=== PATIENT | male | born 1965 | race African-American/Black ===

== ENCOUNTER 2019-01-18 21:04 | Inpatient (IN) | payer MEDICARE ==
[~2019-01-18] VITALS: Ht 170.2 cm; Wt 83.1 kg
[~2019-01-18 21:04] MED LIST: AMLO10 PO; Colace100 MG PO; LISI20 PO; Lopressor 25 mg25 MG PO
[2019-01-18 21:52] LABS: BASOPHILS ABSOLUTE AUTO 0.02 K/mm3 (0.00-0.23); BASOPHILS PERCENT AUTO 0 % (0-2); EOSINOPHILS PERCENT AUTO 0 % (0-6); Hematocrit 39.5 % (37.0-53.0); Hemoglobin 13.8 g/dL (13.5-17.5); IMMATURE GRAN ABSOLUTE AUTO 0.06 K/mm3 (0.00-0.10); IMMATURE GRAN PERCENT AUTO 0 % (0-1); LYMPHOCYTES ABSOLUTE AUTO 0.28 K/mm3 (0.84-5.20); LYMPHOCYTES PERCENT AUTO 2 % (21-46); MONOCYTES ABSOLUTE AUTO 0.56 K/mm3 (0.16-1.47); MONOCYTES PERCENT AUTO 4 % (4-13); Mean Corpuscular HGB 29.9 pg (26.0-34.0); Mean Corpuscular HGB Conc 34.9 g/dL (31.5-36.5); Mean Corpuscular Volume 86 fL (80-100); Mean Platelet Volume 8.7 fL (9.1-12.4); NEUTROPHILS ABSOLUTE AUTO 13.74 K/mm3 (1.96-9.15); NEUTROPHILS PERCENT AUTO 94 % (41-73); Platelet Count 298 K/mm3 (150-400); RDW Coefficient Variation 14.2 % (11.7-14.2); RDW Standard Deviation 43.7 fL (35.1-46.3); Red Blood Cell Count 4.61 M/mm3 (4.30-5.90); White Blood Cell Count 14.66 K/mm3 (4.00-11.30)
[2019-01-18 22:06] LABS: Albumin, Blood 3.5 g/dL (3.4-5.0); Albumin/Globulin Ratio 0.9 (0.8-1.8); Bilirubin, Total 0.5 mg/dL (0.1-1.0); Bun/Creatinine Ratio 23.3 (12.0-20.0); Calcium, Blood 7.3 mg/dL (8.5-10.1); Creatinine, Blood 2.19 mg/dL (0.60-1.20); Globulin, Blood 3.7 g/dL (2.2-4.0); Potassium, Blood 3.4 mmol/L (3.5-5.5); Total Protein, Blood 7.2 g/dL (6.4-8.2)
[2019-01-18 22:22] LABS: PCO2 Arterial 13.3 mmHg (35-45); PO2 Arterial 103 mmHg (80-100); pH Blood Arterial 7.43 (7.35-7.45)
[2019-01-18 22:33] LABS: Source, Urine Catheter
[2019-01-18 22:36] LABS: Bilirubin, Urine Neg (Neg); Blood, Urine 5+ (Neg); Glucose Qualitative, Urine Neg (Neg); Ketones, Urine 3+ (Neg); Leukocyte Esterase, Urine Neg (Neg); Nitrite, Urine Neg (Neg); Protein, Urine 3+ (Neg); Urobilinogen, Urine NORM (Normal)
[2019-01-18 22:39] LABS: Appearance, Urine Clear (Clear); Color, Urine Yellow (P-Yellow)
[2019-01-18 22:42] LABS: Amorphous Light (0-Heavy); Bacteria Mod /hpf; Red Blood Cells, Urine 0-2 /hpf (0-2); Squamous Epithelial Cells Rare /hpf (Few); White Blood Cells, Urine 0-2 /hpf (0-5)
[2019-01-18 22:47] LABS: U Amphetamine Screen Not Detected; U Barbituate Screen Not Detected; U Benzodiazapine Screen Not Detected; U Buprenorphine Screen Not Detected; U Cannabinoids Screen Not Detected; U Cocaine Screen Not Detected; U Methadone Screen Not Detected; U Methamphetamine Screen Not Detected; U Opiates Screen Not Detected; U Oxycodone Screen Not Detected; U Phencyclidine Screen Not Detected; U Propoxyphene Screen Not Detected
[2019-01-19 01:48] LABS: Source, Urine Catheter
[2019-01-19 01:51] LABS: Appearance, Urine Clear (Clear); Bilirubin, Urine Neg (Neg); Blood, Urine 5+ (Neg); Color, Urine Yellow (P-Yellow); Glucose Qualitative, Urine Neg (Neg); Ketones, Urine 4+ (Neg); Leukocyte Esterase, Urine Neg (Neg); Nitrite, Urine Neg (Neg); Protein, Urine 3+ (Neg); Urobilinogen, Urine NORM (Normal)
[2019-01-19 01:57] LABS: Red Blood Cells, Urine 25-50 /hpf (0-2); White Blood Cells, Urine 0-2 /hpf (0-5)
[2019-01-19 01:58] LABS: Bacteria Mod /hpf; Hyaline Casts 0-2 /lpf (0-2); Squamous Epithelial Cells Not Seen /hpf (Few)
--- NOTE | 2019-01-19 02:01 | NUR ---
DIALYSIS CATH PLACED BY DR. OBRIEN. WAITING FOR XRAY FOR LINE PLACEMENT.
--- NOTE | 2019-01-19 02:33 | NUR ---
DR. RIVERA TO BEDSIDE. ORDER TO PLACE NG TUBE. NG PLACED. AIR OSCULTATED BUT NO ASPIRATE, XRAY APPROVED FROM DR. RIVERA FOR PLACEMENT. XRAY NOTIFIED.
[2019-01-19 02:47] LABS: Bun/Creatinine Ratio 25.4 (12.0-20.0); Calcium, Blood 6.7 mg/dL (8.5-10.1); Creatinine, Blood 2.09 mg/dL (0.60-1.20); Potassium, Blood 3.3 mmol/L (3.5-5.5)
[2019-01-19 02:48] LABS: Salicylate 93.6 mg/dL (2.8-20.0)
--- NOTE | 2019-01-19 06:52 | NUR ---
UPDATE: PT FINISHING DIALYSIS. WILL REPORT TO ONCOMING RN TO DRAW LABS ONE HOUR AFTER DIALYSIS COMPLETE PER DR. STEVENS ORDERS. PT REMAINED QUIET AND CALM DURING DIALYSIS, SLEEPING. APPARENTLY PT MUMBLED TO DIALYISIS RN THAT HE HAD TO "PEE". RN EXPLAINED STERN CATHETER TO PT, PT CONTINUES TO SLEEP. VITALS REMAIN STABLE, PT REMAINS ON ROOM AIR.
--- NOTE | 2019-01-19 07:15 | NUR ---
BEGINNING OF SHIFT Assumed care at 0700 with Cassius NOLASCO. Bedside report received from Olga Lidia NOLASCO. Pt completed dialysis at 0700. Pt on room air. SR per monitor. Pt does not awaken to verbal stimulus.
--- NOTE | 2019-01-19 08:15 | NUR ---
UPDATE Pt awoke with verbal stimulus. Pt confused, does not know current location, year, or who the president is. Pt follows directions. Pt able to state correct month and day of birthday, but not year. Pt cannot state his current age. Pt states he did not celebrate birthdays and therefore does not know his current age. Pt also states "I was adopted" when staff asks what year he was born. Pt then repeats "How did I get to [place]?" repeately. When asked where he resides, pt states he is from [place].
[2019-01-19 08:24] LABS: BASOPHILS ABSOLUTE AUTO 0.02 K/mm3 (0.00-0.23); BASOPHILS PERCENT AUTO 0 % (0-2); EOSINOPHILS PERCENT AUTO 0 % (0-6); Hematocrit 29.8 % (37.0-53.0); Hemoglobin 10.3 g/dL (13.5-17.5); IMMATURE GRAN ABSOLUTE AUTO 0.06 K/mm3 (0.00-0.10); IMMATURE GRAN PERCENT AUTO 1 % (0-1); LYMPHOCYTES ABSOLUTE AUTO 1.09 K/mm3 (0.84-5.20); LYMPHOCYTES PERCENT AUTO 9 % (21-46); MONOCYTES ABSOLUTE AUTO 0.61 K/mm3 (0.16-1.47); MONOCYTES PERCENT AUTO 5 % (4-13); Mean Corpuscular HGB 29.1 pg (26.0-34.0); Mean Corpuscular HGB Conc 34.6 g/dL (31.5-36.5); Mean Corpuscular Volume 84 fL (80-100); Mean Platelet Volume 8.4 fL (9.1-12.4); NEUTROPHILS PERCENT AUTO 85 % (41-73); Platelet Count 215 K/mm3 (150-400); RDW Coefficient Variation 14.2 % (11.7-14.2); RDW Standard Deviation 43.8 fL (35.1-46.3); Red Blood Cell Count 3.54 M/mm3 (4.30-5.90); White Blood Cell Count 12.08 K/mm3 (4.00-11.30)
--- NOTE | 2019-01-19 08:45 | NUR ---
[facility] tech in room for renal ultrasound. Poison control center called inquiring about pt's mentation and latest lab results. Recommendation given to administer 50 mL of D50. Clarified that this was recommended despite pt receiving 5% dextrose mixed with bicarb and current blood glucose levels. Recommendation given to Dr Delgado. New orders given. Placed phone call to Dr Finney with lab results. New orders given.
[2019-01-19 08:47] LABS: Anion Gap 7 mmol/L (6-16); Blood Urea Nitrogen 26 mg/dL (8-24); Bun/Creatinine Ratio 19.7 (12.0-20.0); CO2, Blood 30 mmol/L (21-32); Calcium, Blood 7.5 mg/dL (8.5-10.1); Chloride, Blood 103 mmol/L (98-108); Creatinine, Blood 1.32 mg/dL (0.60-1.20); Glomerular Filtration Rate >60 (60-); Glucose, Blood 134 mg/dL (70-99); Potassium, Blood 2.6 mmol/L (3.5-5.5); Salicylate 41.1 mg/dL (2.8-20.0); Sodium, Blood 140 mmol/L (136-145)
[2019-01-19 08:52] LABS: Albumin, Blood 3.2 g/dL (3.4-5.0); Anion Gap 7 mmol/L (6-16); Blood Urea Nitrogen 26 mg/dL (8-24); Bun/Creatinine Ratio 19.3 (12.0-20.0); CO2, Blood 30 mmol/L (21-32); Calcium, Blood 7.3 mg/dL (8.5-10.1); Chloride, Blood 102 mmol/L (98-108); Creatinine, Blood 1.35 mg/dL (0.60-1.20); Glomerular Filtration Rate 59 (60-); Glucose, Blood 133 mg/dL (70-99); Magnesium, Blood 1.8 mg/dL (1.6-2.4); Potassium, Blood 2.6 mmol/L (3.5-5.5); Salicylate 41.3 mg/dL (2.8-20.0); Sodium, Blood 139 mmol/L (136-145)
[2019-01-19 08:59] LABS: Phosphorus, Blood 0.8 mg/dL (2.5-4.9)
[2019-01-19 09:30] LABS: PCO2 Arterial 33.5 mmHg (35-45); PO2 Arterial 78.5 mmHg (80-100); pH Blood Arterial 7.61 (7.35-7.45)
--- NOTE | 2019-01-19 10:30 | NUR ---
DR STEVENS Call placed to provider at 0934 with ABG results. New orders given. Bicarb drip decreased to [address] Stevens in to see pt at 1025. Orders given to decrease bicarb drip to 50 mL per hour.
[2019-01-19 10:31] LABS: Salicylate 37.8 mg/dL (2.8-20.0)
[2019-01-19 10:34] LABS: Bun/Creatinine Ratio 20.5 (12.0-20.0); Calcium, Blood 7.4 mg/dL (8.5-10.1); Creatinine, Blood 1.51 mg/dL (0.60-1.20); Potassium, Blood 2.4 mmol/L (3.5-5.5)
[2019-01-19 12:09] LABS: PCO2 Arterial 34.1 mmHg (35-45); PO2 Arterial 72.9 mmHg (80-100)
[2019-01-19 12:10] LABS: pH Blood Arterial 7.62 (7.35-7.45)
--- NOTE | 2019-01-19 12:39 | NUR ---
1200 ABG / PT'S MENTATION 1200 ABG results called to Dr Finney. New orders given. Bicarb drip off. After administering D50%, pt is now A&O x 2. Talking to staff, answering questions appropriately, following directions. When asked how many aspirin he took, pt states "Enough to take the pain away". Pt states "My knee is messed up", pointing to his left knee. Pt also states "I broke my back." This RN educated pt on current illness and aspirin. Pt verbalizes frustration about pain, stating the [place] "refuses to refill my medications", therefore he medicates with aspirin. Pt states that pain greatly affects his quality of life. Pt states he moved to [place] from [place] one month ago and states he has been "staying on the street with some friends" because "my room at the [facility] isn't ready yet". 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
[2019-01-19 12:52] LABS: Bun/Creatinine Ratio 19.5 (12.0-20.0); Calcium, Blood 7.2 mg/dL (8.5-10.1); Creatinine, Blood 1.64 mg/dL (0.60-1.20); Potassium, Blood 2.6 mmol/L (3.5-5.5); Salicylate 37.3 mg/dL (2.8-20.0)
--- NOTE | 2019-01-19 13:53 | NUR ---
UPDATE Pt has been alert and oriented for several hours. Pt sitting in bed, watching TV. Tolerating ice chips and water without coughing, gagging, or choking. Call placed to Dr Delgado to update and inquire about removing NG tube. Unable to reach provider at this time.
--- NOTE | 2019-01-19 14:00 | NUR ---
SPOKE TO DR ISIAH Segura to remove NG tube per Dr Delgado. Provider states pt may not eat unless poison control center states it is okay.
--- NOTE | 2019-01-19 14:24 | NUR ---
NG TUBE REMOVED
[2019-01-19 14:45] LABS: Bun/Creatinine Ratio 19.1 (12.0-20.0); Calcium, Blood 7.3 mg/dL (8.5-10.1); Creatinine, Blood 1.73 mg/dL (0.60-1.20); Potassium, Blood 2.7 mmol/L (3.5-5.5); Salicylate 35.3 mg/dL (2.8-20.0)
--- NOTE | 2019-01-19 15:59 | NUR ---
CHANGE IN MENTATION Pt drowsy and difficult to arouse. Responsive to verbal stimulus, but pt speaks in 1-2 word sentences and does not open eyes unless asked to do so. Pt also diaphoretic. Temp 99.5. Blankets removed. This RN placed call to poison control center, updated with change in mentation and recent labs. Poison control center recommended restarting bicarb drip, acknowledging elevated ABG pH, obtaining urine pH, and administering one amp of D50. This RN placed call to Dr Finney with recommendations. Provider ordered Stat ABG and urine pH. Gaffney catheter clamped to obtain specimen.
[2019-01-19 16:06] LABS: PCO2 Arterial 39.1 mmHg (35-45); PO2 Arterial 84.3 mmHg (80-100); pH Blood Arterial 7.56 (7.35-7.45)
--- NOTE | 2019-01-19 16:30 | NUR ---
UPDATE Placed call to Dr Finney with ABG results. Order given to restart bicarb drip. Pt still receiving K Phos and KCL. Renal panel and phosphorus to be obtained one hour after potassium complete. Dr Finney to be notified of results. After administering D50, pt's mentation did not change. This RN called Dr Delgado to update- poison control center recommended follow up head CT. New orders received from Dr Delgado.
--- NOTE | 2019-01-19 18:24 | NUR ---
SUMMARY Pt remains on 2 LPM NC. SpO2 90% or greater. RR is 18-22. Pt is awake in room, talking to turner splitter machine operator. Pt becomes tearful stating "The doctors never told me my kidneys were bad. They said nothing was wrong with me." Pt educated on aspirin overdose and purpose for dialysis. Pt states "You don't understand. I take aspirin because I am in pain". Pt then talks to dialysis nurse about his belongings and knee brace. Knee brace removed per pt request. Speech is confused at times. Pt to have head CT after dialysis.
--- NOTE | 2019-01-19 19:08 | NUR ---
SUMMARY Pt remains on 2 LPM NC. SpO2 90% or greater. RR is 18-22. Pt is awake in room, talking to can reconditioner. Pt becomes tearful stating "The doctors never told me my kidneys were bad. They said nothing was wrong with me." Pt educated on aspirin overdose and purpose for dialysis. Pt states "You don't understand. I take aspirin because I am in pain". Pt then talks to dialysis nurse about his belongings and knee brace. Knee brace removed per pt request. Speech is slightly slurred. Pt is confused at times. Mentation has improved overall since initial assessment. Pt to have head CT after dialysis.
[2019-01-19 22:03] LABS: Magnesium, Blood 1.9 mg/dL (1.6-2.4); Phosphorus, Blood 1.2 mg/dL (2.5-4.9)
--- NOTE | 2019-01-19 22:03 | NUR ---
START OF SHIFT: REPORT FROM EUNICE NOLASCO. PT WAS RECEIVING DIALYSIS AT TIME OF SHIFT CHANGE WITH ORDERS TO GET LABS ON HOUR POST DIALYSIS AND CALL DR. STEVENS WITH RESULTS. IN ADDITION, STAT CT ONCE DIALYSIS DONE. DIALYSIS DONE APPRX 2014, PT THEN TAKEN TO CT AND TOLERATED WELL. PT TALKATIVE AT THAT TIME ANSWERING QUESTIONS RE: HIS HISTORY. PT STATED WAS RECENTLY ADMIT TO [facility] FOR PANCREATIC CA AND C/O THAT HE WAS IN MRI FOR FOUR HOURS WHILE GIVEN, "THE BROWN BAG". PT VOLUNTARILY GAVE PERMISSION TO RECTRIEVE HIS RECORDS FROM [facility]- CONTINUOUS MINING OPERATOR NOTIFED OF THIS. PT VSS THUS FAR THIS SHIFT (SEE FLOWSHEET), PT ON O2 2L VIA N/C WITH SATS 97-100% WHEN IN UPRIGHT CHAVIS'S POSITION, HOWEVER, WHEN SUPINE IN LOWER FOWLERS PT WITH APNEIC SPELLS WITH SATS LOW 87%. PT HAS BEEN SLEEPING SINCE BACK FROM CT. PT AT FIRST WITH RHONCHI BILAT UPPER BUT CLEARED WITH COUGH. PT RESPIRATIOS REMAIN SHALLOW WITH PT NOT TAKING DEEP BREATHS WHEN ASKED.
[2019-01-19 22:07] LABS: Anion Gap 3 mmol/L (6-16); Blood Urea Nitrogen 16 mg/dL (8-24); Bun/Creatinine Ratio 13.9 (12.0-20.0); CO2, Blood 37 mmol/L (21-32); Calcium, Blood 7.6 mg/dL (8.5-10.1); Chloride, Blood 100 mmol/L (98-108); Creatinine, Blood 1.15 mg/dL (0.60-1.20); Glomerular Filtration Rate >60 (60-); Glucose, Blood 108 mg/dL (70-99); Phosphorus, Blood 1.2 mg/dL (2.5-4.9); Potassium, Blood 2.8 mmol/L (3.5-5.5); Sodium, Blood 140 mmol/L (136-145)
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
--- NOTE | 2019-01-19 22:35 | NUR ---
DR. STEVENS CALLED AND UPDATED. NEW ORDERS TO GIVE KCL 40 mEq IV NOW, KPHOS 20 mm IV NOW. D/C SODIUM BICARB gtt. START PROTONIX 40 mg IV QD. KEEP PT NPO UNTIL MORNING.
--- NOTE | 2019-01-19 23:27 | NUR ---
[facility]: CALL FROM [facility] AT [facility] AND WAS UPDATED. RECOMMENDATION TO DRAW SALICYLATE LEVELS 6 & 12 HOURS AFTER BICARB gtt STOPPED. BICARB gtt STOPPED AT 23[address]. [address] ORDER TO DRAW SALICYLATE AT 01/20 0500 AND THEN AGAIN AT 1100 am.
--- NOTE | 2019-01-20 00:18 | NUR ---
PARTIAL BATH/SHANEKA CHANGE: PT GIVEN PARTIAL BATH AND LINEN CHANGE. PT NEEDED FULL ASSIST AND MOANED WHILE BEING TURNE C/O BACK PAIN. PT DID NOT PARTICIPATE WITH EACH TURN INSTRUCTION. PT DID SHOW APPRECIATION AND THANKED RN/LEAN MANUFACTURING COORDINATOR AFTER BATH COMPLETE.
--- NOTE | 2019-01-20 04:45 | NUR ---
ASA CONSUMPTION: PT AWAKENED, USED CALL LIGHT FOR THE FIRST TIME REQUESTING A DRINK OF WATER. PT GIVEN SIPS OF WATER WHICH PT TOLERATED WELL. PT THEN BEGAN EXPLAINING HIS TRAIN RIDE FROM [place] INTO [place] AND WAS HOMELESS CARRYING ALL OF HIS BELONGINGS ON HIS BACK. IN THIS CONVERSATION PT STATED HE'S GOT INCUREABLE CANCER AND STATED, AGAIN, THAT IT WAS PANCREATIC. PT ALSO STATED THAT HIS BACK WAS SEVERED IN THE PAST WHICH IS NOW CAUSING SEVERE CHRONIC PAIN. PT ANSWERED TO WHY HE WAS TAKING SO MANY ASPIRIN-PT STATED THAT HE TAKES 4-5 ASPIRINS A DAY AND WILL KEEP TAKING ASPIRIN SO THAT MAYBE SOME DAY HE WON'T NEED TO WORRY ABOUT THE PAIN ANYMORE. PT STATED THAT HE HAS TRIED ESB AND MARIJUANA PRODUCTS BUT, "YOU CAN'T GET GOOD QUALITY AROUND HERE". PT THEN FELL BACK TO SLEEP, SNORING.
[2019-01-20 05:14] LABS: Hematocrit 29.5 % (37.0-53.0); Hemoglobin 9.6 g/dL (13.5-17.5)
[2019-01-20 05:30] LABS: Albumin, Blood 2.8 g/dL (3.4-5.0); Anion Gap 3 mmol/L (6-16); Blood Urea Nitrogen 20 mg/dL (8-24); Bun/Creatinine Ratio 13.4 (12.0-20.0); CO2, Blood 36 mmol/L (21-32); Calcium, Blood 7.7 mg/dL (8.5-10.1); Chloride, Blood 101 mmol/L (98-108); Creatinine, Blood 1.49 mg/dL (0.60-1.20); Glomerular Filtration Rate 53 (60-); Glucose, Blood 119 mg/dL (70-99); Phosphorus, Blood 1.7 mg/dL (2.5-4.9); Potassium, Blood 3.4 mmol/L (3.5-5.5); Salicylate 11.2 mg/dL (2.8-20.0); Sodium, Blood 140 mmol/L (136-145)
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
--- NOTE | 2019-01-20 07:14 | NUR ---
BEGINNING OF SHIFT Assumed care of pt at 0700 with Cassius NOLASCO. Pt awake in bed. Call placed to Dr Delgado to notify that pt is in 2 MD hold. Also notified of positive blood cultures. No new orders at this time.
--- NOTE | 2019-01-20 07:15 | NUR ---
BEGINNING OF SHIFT Assumed care of pt at 0700 with Cassius RN. Pt awake in bed. Call placed to Dr Delgado to notify that pt had positive blood cultures. Also notified Dr Delgado that night hospitalist, Dr Rinaldi, ordered 2 MD hold for pt and Dr Delgado's signature was required to complete the 2 MD hold. Provider stated she will be in see the pt soon; awaiting Dr Delagdo's signature.
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
--- NOTE | 2019-01-20 11:51 | NUR ---
EMERGENCY CONTACT Edwin Rasmussen ([phone]), close friend of pt, at bedside. Pt and Edwin state that Edwin is the decision maker for pt, if the pt is unable to speak. Edwin states he will bring in paperwork verifying this. Update given to Edwin, with verbal permission from pt. Father Carson also in to see patient.
--- NOTE | 2019-01-20 13:36 | NUR ---
UPDATE Jaydon from poison control called unit for update. Update provided. No new recommendations at this time. Pt laying in bed; tolerated lunch well. Pt pleasant and cooperative with staff.
--- NOTE | 2019-01-20 13:52 | NUR ---
CARE MANAGEMENT Spoke to Mandy NOLASCO from care management. Pt states he was living at the [facility] previously, but now he is living with some friends by a [place]. Also discussed [facility].
--- NOTE | 2019-01-20 15:42 | NUR ---
SHOWER Pt transferred into wheelchair and then into shower room. Pt bathed thourougly bathed himself with staff assistance. Pt states "I try to clean myself as much as I can. I enjoy being clean." Pt unsteady on feet, follows verbal cues well.
--- NOTE | 2019-01-20 17:09 | NUR ---
CALL PLACED TO DR JOYCE Called Dr Joyce at 1625 to notify that pt was having pain. Pt reported abdominal and back pain. Pt states this is the pain he was taking ASA for. Also requested PT/OT for pt. New orders entered by Dr Joyce.
--- NOTE | 2019-01-20 18:43 | NUR ---
PT TRANSFER TO ROOM 350 FROM ICU 10- ALERT AND ORIENTED CAME TO FLOOR IN WHEEL CHAIR, AMBULATED SBA TO BATHROOM AND VOIDED. SCANT BLOOD WIPED OFF MEATUS AFTER BLOOD. MONITORED DURING BATHROOM USE. ROOM SET UP FOR SI- ORIENTED PT TO ROOM SET UP AND SAFETY AND SI PROTOCOL. BELONGINGS LOCKED UP IN CLOSET. PT HAS RIJ, AND PERIPHERAL SITE. STATES HE IS STILL HAVING PAIN IN ABD AND BACK EVEN AFTER TRAMADOL IN ICU BEFORE TX. PT'S LUNGS CLEAR, ON ROOM AIR, RESP EVEN UNLABORED. TOLERATED GENERAL DINNER AND FLUIDS. DR MENDOZA AT BEDSIDE TO MEREDITH PT 1840.
--- NOTE | 2019-01-20 19:06 | NUR ---
TRANSFER No acute changes to shift assessment. Pt transferred to room 350. Report given to Hosea NOLASCO. Pengs transferred to new room and secured. Pt transferred via wheelchair accompanied by Bonita GERBER.
--- NOTE | 2019-01-21 00:27 | NUR ---
01/20/19 2200 SHEET OVER HIS HEAD. AWAKENED FOR PM MEDS AND SNACK GIVEN PER HIS REQUEST. VERY TALKATIVE ABOUT HIS VISITS TO [place] [facility] AND STRESSES IN HIS LIFE INCLUDING HIS MEDICAL ISSUES. OPENLY TALKS ABOUT TAKING MANY ASPIRINS "TO CONTROL" HIS PAIN. STATES HE IS COMFORTABLE IN BED AT THIS TIME. SUICIDE PRECAUTIONS IN EFFECT WITH CONTINUOS VIDEO MONITORING.
--- NOTE | 2019-01-21 02:32 | NUR ---
01/21/19 0200 SNORING AND APPEARS TO BE SLEEPING WELL. CONTINUOUS VIDEO OBSERVATION IN EFFECT.
[2019-01-21 04:50] LABS: Hematocrit 29.2 % (37.0-53.0); Hemoglobin 9.3 g/dL (13.5-17.5)
[2019-01-21 05:31] LABS: Albumin, Blood 2.7 g/dL (3.4-5.0); Anion Gap 5 mmol/L (6-16); Blood Urea Nitrogen 26 mg/dL (8-24); Bun/Creatinine Ratio 19.3 (12.0-20.0); CO2, Blood 32 mmol/L (21-32); Calcium, Blood 7.9 mg/dL (8.5-10.1); Chloride, Blood 101 mmol/L (98-108); Creatinine, Blood 1.35 mg/dL (0.60-1.20); Glomerular Filtration Rate 59 (60-); Glucose, Blood 110 mg/dL (70-99); Magnesium, Blood 1.8 mg/dL (1.6-2.4); Phosphorus, Blood 1.6 mg/dL (2.5-4.9); Potassium, Blood 3.2 mmol/L (3.5-5.5); Sodium, Blood 138 mmol/L (136-145)
--- NOTE | 2019-01-21 07:17 | NUR ---
01/21/19 0645 WATCHING TV AND MEDICATED FOR GENERAL BACK AND ABDOMEN DISCOMFORT PER SEP. STATES HE SLEPT BETTER WITH MED. THAT DR AUGUSTE PRESCRIBED LAST NIGHT. CONTINUES ON SUICIDE WATCH AND CONTINUOUS VIDEO OBSERVATIONS. VITALS STABLE.
[2019-01-21 10:07] LABS: HBSAG SCREEN Negative (Negative); HEP C VIRUS AB <0.1 (0.0-0.9)
--- NOTE | 2019-01-21 16:27 | NUR ---
PT IS A/OX3,PLEASANT AND COOPERATIVE, THE PT IS UP WITH MINIMAL ASSIT, TODAY THE PT WAS UP WITH THE PHYSICAL AND OCCUPATIONAL THERAPISTS AND AMBULATED INTO THE BOWEN WITH HIS BACK AND KNEE BRACE ON, PT TOLEARTED WELL APPEARED TO BE BREATHING EASILY ON RA, THE PT WAS MEDICATED FOR PAIN X2 SO FAR THIS SHIFT FOR CHRONIC PAIN IN THE BACK AND HIS ABD, PT CONTINUES TO REPORT SUICIDE IDEATION IF HE WERE TO BE HOME ALONE, SOCIAL SERVICE IS WORKING ON PLACEMENT FOR THE PT AT THIS TIME PER DR. REJI RECOMENDATIONS, THE PT WAS MEDICATED FOR CONSTIPATION TODAY, CALL LIGHT IN REACH
--- NOTE | 2019-01-22 06:18 | NUR ---
SHIFT SUMMARY PT IS A 53 Y/O MALE, ADMITTED FOR ACUTE METABOLIC ENCEPHALOPATHY DUE TO AN INTENTIONAL ASPIRIN OVERDOSE. PT IS CURRENTLY ON SI PRECAUTIONS. HE REPORTED CHRONIC BACK AND ABD PAIN, FOR WHICH HE WAS MEDICATED TWICE WITH PRN TRAMADOL. NO COMPLAINTS OF NAUSEA OR SOB. VITALS REMAINED STABLE. NO ACUTE CHANGES IN PT CONDITION NOTED. WILL CONTINUE TO MONITOR AND TREAT PER EMAR.
[2019-01-22 06:32] LABS: Albumin, Blood 2.7 g/dL (3.4-5.0); Anion Gap 3 mmol/L (6-16); Blood Urea Nitrogen 20 mg/dL (8-24); Bun/Creatinine Ratio 15.3 (12.0-20.0); CO2, Blood 32 mmol/L (21-32); Calcium, Blood 8.4 mg/dL (8.5-10.1); Chloride, Blood 102 mmol/L (98-108); Creatinine, Blood 1.31 mg/dL (0.60-1.20); Glomerular Filtration Rate >60 (60-); Glucose, Blood 99 mg/dL (70-99); Magnesium, Blood 1.8 mg/dL (1.6-2.4); Phosphorus, Blood 2.1 mg/dL (2.5-4.9); Potassium, Blood 4.1 mmol/L (3.5-5.5); Sodium, Blood 137 mmol/L (136-145)
--- NOTE | 2019-01-22 16:45 | NUR ---
PT IS A/OX3, PLEASANT AND COOPERATIVE, APPEARS TO BE BREATHING EASILY AT REST, THE PT WAS MEDICATED FOR BACK PAIN X3 TODAY, THE PT REPORTED HAVING A SMALL HARD BM TODAY, THE PT WAS UP WITH THE PHYSICAL THERAPIST AND WALKED IN THE BOWEN TODAY USEING THE FWW, DR. HORTON WAS IN TO SEE THE PT AND MADE SOME ADJUSTMENTS TO HIS MEDICATION, CALL LIGHT IN REACH, PTS BELONGINGS ARE LOCKED IN THE CLOSET
[2019-01-23 05:17] LABS: Hemoglobin 10.6 g/dL (13.5-17.5)
[2019-01-23 06:05] LABS: Albumin, Blood 2.5 g/dL (3.4-5.0); Anion Gap 8 mmol/L (6-16); Blood Urea Nitrogen 25 mg/dL (8-24); Bun/Creatinine Ratio 18.4 (12.0-20.0); CO2, Blood 27 mmol/L (21-32); Calcium, Blood 8.7 mg/dL (8.5-10.1); Chloride, Blood 104 mmol/L (98-108); Creatinine, Blood 1.36 mg/dL (0.60-1.20); Glomerular Filtration Rate 59 (60-); Glucose, Blood 100 mg/dL (70-99); Magnesium, Blood 1.8 mg/dL (1.6-2.4); Phosphorus, Blood 3.2 mg/dL (2.5-4.9); Potassium, Blood 4.8 mmol/L (3.5-5.5); Sodium, Blood 139 mmol/L (136-145)
--- NOTE | 2019-01-23 07:03 | NUR ---
SHIFT SUMMARY PT ON SI. C/O PAIN X1 AND MEDICATED PER EMAR. USING URINAL AT BEDSIDE. CAMERA IN USE. HE SAID HE WAS ABLE TO SLEEP A LITTLE BETTER THROUGH THE NIGHT. CALL LIGHT IN REACH.
[2019-01-23 08:09] LABS: HEP A AB, IGM Negative; HEP B CORE AB, IGM Negative
--- NOTE | 2019-01-23 16:56 | NUR ---
PT AOX4 AND COOPERATIVE OF CARE. PT RESTING IN BED. TREATED FOR BACK PAIN PER EMAR. NO DISTRESS NOTED. PT STATES HE IS STILL AT RISK FOR HARMING HIMSELF. BELONGINGS ARE LOCKED IN CLOSET. WILL CONTINUE TO MONITOR.
[2019-01-24 05:22] LABS: Hematocrit 32.7 % (37.0-53.0); Hemoglobin 10.6 g/dL (13.5-17.5)
[2019-01-24 05:37] LABS: Albumin, Blood 2.6 g/dL (3.4-5.0); Anion Gap 4 mmol/L (6-16); Blood Urea Nitrogen 32 mg/dL (8-24); CO2, Blood 32 mmol/L (21-32); Calcium, Blood 9.3 mg/dL (8.5-10.1); Chloride, Blood 102 mmol/L (98-108); Creatinine, Blood 1.39 mg/dL (0.60-1.20); Glomerular Filtration Rate 57 (60-); Glucose, Blood 103 mg/dL (70-99); Magnesium, Blood 1.8 mg/dL (1.6-2.4); Phosphorus, Blood 3.7 mg/dL (2.5-4.9); Potassium, Blood 4.6 mmol/L (3.5-5.5); Sodium, Blood 138 mmol/L (136-145)
--- NOTE | 2019-01-24 06:41 | NUR ---
SHIFT SUMMARY PT ON SI PRECAUSIONS. C/O PAIN IN BACK AND WHOLE BODY AND MEDICATED FOR PAIN X2. HE WAS ABLE TO SLEEP T/O NIGHT. USING URINAL, TRYING HAVING BM BUT NOT SUCCUSSFUL. SAYS HE STILL WILL ATTEMPT SUICIDE IF LET OUT OF HOSPITAL. CALL LIGHT IN REACH.
--- NOTE | 2019-01-24 07:14 | NUR ---
REMOTE MONITORING VERIFIED. MADIE KWON, FIBERGLASS LAMINATOR VERIFIED THAT PT IN 350 IS CLEARLY VIEWED WITHIN THE MONITORS. WILL CONTINUE TO MONITOR.
--- NOTE | 2019-01-24 11:55 | NUR ---
OK TO DC CENTRAL LINE. DR. STEVENS CALLED TO CONFIRM THAT HE WANTS THE CENTRAL LINE TAKEN OUT. DR. STEVENS ORDERED TO HOLD LOVENOX FOR TODAY ONLY. DIALYSIS NURSE NOTIFIED TO REMOVE CENTRAL LINE.
--- NOTE | 2019-01-24 17:40 | NUR ---
SHIFT SUMMARY NO STATEMENTS OR PHYSICAL ATTEMPTS OF SELF HARM. PT COOPERATIVE & CALM IN ROOM THROUGHOUT SHIFT. CENTRAL LINE DC'ED THIS SHIFT BY RACHAEL MONTENEGRO RN. NO SIGNS OF BLEEDING. NO OTHER CHANGES IN ASSESSMENT AT THIS TIME. VSS. WILL CONTINUE TO MONITOR UNTIL TURNOVER IS COMPLETE.
--- NOTE | 2019-01-24 19:25 | NUR ---
REMOTE MONITORING VERIFIED BY THIS RN. PT REMAINS IN SUICIDE PRECAUTIONS.
--- NOTE | 2019-01-25 01:18 | NUR ---
PT REMOVED PRESSURE DRESSING TO CENTRAL LINE SITE. REPORTS PRESSURE DRESSING WAS "SUFFOCATING" HIM AND HE COULD NOT STAND IT ANYMORE. SITE IS CLEAN, DRY, INTACT. APPLIED DRESSING TO SITE. WILL CONT TO MONITOR.
[2019-01-25 05:55] LABS: Hematocrit 32.4 % (37.0-53.0); Hemoglobin 10.4 g/dL (13.5-17.5)
--- NOTE | 2019-01-25 06:00 | NUR ---
SHIFT SUMMARY: PT EXPRESSES TO THIS RN CONTINUED INTENT TO HARM SELF IF HE WAS NOT IN THE HOSPITAL. HOWEVER, IN THE HOSPITAL HE REPORTS HE WOULD NOT HURT HIMSELF BECAUSE HE HAS "EVERYTHING NEEDED GIVEN TO HIM WHILE HERE." SUICIDAL PRECAUTIONS REMAIN IN PLACE FOR PT AND SURROUNDINGS. PT REMOVES PRESSURE DRESSING FROM CENTRAL LINE CATH REMOVAL EARLIER IN THE DAY. SITE IS C/D/I, APPLIED NEW DRESSING. PT IS A&O, CALL LT APPROP, PLEASANT. PT C/O PAIN TO L LEG AND BACK, TREATED 1X c PO TRAMADOL. NO OTHER CHANGES TO REPORT. WILL CONT TO MONITOR AND PROVIDE CARE UNTIL PRESUMED BY ONCOMING RN.
[2019-01-25 06:15] LABS: Albumin, Blood 2.6 g/dL (3.4-5.0); Anion Gap 3 mmol/L (6-16); Blood Urea Nitrogen 37 mg/dL (8-24); Bun/Creatinine Ratio 26.6 (12.0-20.0); CO2, Blood 31 mmol/L (21-32); Calcium, Blood 8.9 mg/dL (8.5-10.1); Chloride, Blood 101 mmol/L (98-108); Creatinine, Blood 1.39 mg/dL (0.60-1.20); Glomerular Filtration Rate 57 (60-); Glucose, Blood 112 mg/dL (70-99); Magnesium, Blood 1.9 mg/dL (1.6-2.4); Phosphorus, Blood 4.1 mg/dL (2.5-4.9); Potassium, Blood 4.8 mmol/L (3.5-5.5); Sodium, Blood 135 mmol/L (136-145)
--- NOTE | 2019-01-25 11:03 | NUR ---
MONITORS VERIFIED. VERIFIED WITH AVANI AYALA THAT PT IS CLEARLY SEEN IN MONITORS.
--- NOTE | 2019-01-25 16:17 | NUR ---
Pt visit this afternoon. Pt is resting in bed upon arrival. Engaged in therapeutic discussion regarding goals of care. Listened as Pt discussed his suicide attempt. Listend as Pt expressed [facility] the [facility]. Listened intently as Pt discussed his service in the [employer] and serving in the [facility]. This RN thanked Pt for his service. When asked about his living situation he reports living at the [facility] then declects and changes the subject. Pt expresses appreciation with Dr Dickens and staff here at the hospital. Pt reports plan is to be transfered to inpatient psychiatric unit and is looking forward to plan. He discusses the importance of learning how to take care of his mental issues and taking care of himself. Validated Pt's thoughts. Pt reports no other concerns at this time. Spoke to bedside nurse Jazmin and discussed case. Jazmin reports Pt has history of chronic back pain but has not requested pain medications yesterday or today. No concerns reported at this time. Palliative Care will remain available.
--- NOTE | 2019-01-25 17:31 | NUR ---
SHIFT SUMMARY PT HAS MED BM THIS SHIFT. PT STATES HE STILL HAS IDEATION TO HARM HIMSELF. NO CHANGES IN ASSESSMENT AT THIS TIME. VSS. WILL CONTINUE TO MONITOR UNTIL TURNOVER IS COMPLETE.
--- NOTE | 2019-01-25 18:58 | NUR ---
REMOTE MONITORING REMOTE MONITORING VERIFIED WITH PURVI Kumar PT IS RESTING IN BED AT THIS TIME. SI PRECAUTIONS AND SAFETY STANDARDS IN PLACE.
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
[2019-01-26 07:23] LABS: Albumin, Blood 2.8 g/dL (3.4-5.0); Anion Gap 3 mmol/L (6-16); Blood Urea Nitrogen 42 mg/dL (8-24); Bun/Creatinine Ratio 27.1 (12.0-20.0); CO2, Blood 31 mmol/L (21-32); Calcium, Blood 9.2 mg/dL (8.5-10.1); Chloride, Blood 103 mmol/L (98-108); Creatinine, Blood 1.55 mg/dL (0.60-1.20); Glomerular Filtration Rate 50 (60-); Glucose, Blood 107 mg/dL (70-99); Magnesium, Blood 2.1 mg/dL (1.6-2.4); Phosphorus, Blood 3.4 mg/dL (2.5-4.9); Potassium, Blood 4.7 mmol/L (3.5-5.5); Sodium, Blood 137 mmol/L (136-145)
--- NOTE | 2019-01-26 17:30 | NUR ---
PT AOX4 AND COOPERATIVE OF CARE. PT STARTED SHIFT OFF WANTING TO ARGUE ABOUT HIS MEDICTIONS STATING DENISE HAD MADE CHANGES. MEDICATIONS DUE AND WHAT WOULD BE GIVEN WAS REVIEWED, BUT PT STILL UPTIGHT. PT SEEMED TO BE FINE ONCE DR MOSRE AND DR STEVENS HAD SPOKE WITH HIM. PT HAS BEEN COOPERATIVE OF CARE FOR THE REST OF THE DAY. TREATE FOR PAIN PER EMAR. STILL BEING MONITORED FOR RISK OF SI. WILL CONTINUE TO MONITOR.
--- NOTE | 2019-01-26 19:02 | NUR ---
REMOTE MONITORING VERIFIED REMOTE MONITORING c DIRECTOR OF CRITICAL CARE. ROOM ASSESSED FOR SUICIDE PRECAUTIONS. PT RESTING IN BED, DENIES NEEDS AT THIS TIME. WILL CONT TO MONITOR.
--- NOTE | 2019-01-26 22:04 | NUR ---
PT EXPRESSES CONCERNS AND FRUSTRATIONS WITH CURRENT CARE. EXPLAINED TO PT PLAN OF CARE AND CURRENT MEDICATIONS. ALLOWED PT TO VENT AND PROVIDED THERAPEUTIC COMMUNICATION. UPON LEAVING , PT STATED FEELING "MUCH BETTER". ADMINSITERED PM MEDS PER EMAR. SUICIDE PRECAUTIONS IN PLACE. WILL CONT TO MONITOR.
--- NOTE | 2019-01-27 04:52 | NUR ---
SHIFT SUMMARY NO ACUTE CHANGES TONIGHT. PT CONTINUES TO HAVE SUICIDAL IDEATIONS AND REPORTS HE WILL ATTEMPT AGAIN IF NOT IN THE HOSPITAL. PT EXPRESSES HOPE FOR THE FUTURE AND HIS MENTAL RECOVER AND STABILITY, STATING "I WANT TO FOCUS ON HEALING MY MIND." OFFERED PT SUPPORT AND ENCOURAGEMENT. PT IS A&O X 4, ABLE TO MAKE NEEDS KNOWN. TREATED 1X c PRN TRAMADOL FOR BACK PAIN. PT SLEPT WELL THROUGH THE NIGHT. NO OTHER CHANGES TO REPORT WILL CONT TO MONITOR AND PROVIDE CARE UNTIL PRESUMED BY ONCOMING RN.
[2019-01-27 05:03] LABS: Hematocrit 33.1 % (37.0-53.0); Hemoglobin 10.5 g/dL (13.5-17.5)
[2019-01-27 05:45] LABS: Albumin, Blood 2.8 g/dL (3.4-5.0); Anion Gap 6 mmol/L (6-16); Blood Urea Nitrogen 37 mg/dL (8-24); CO2, Blood 30 mmol/L (21-32); Chloride, Blood 102 mmol/L (98-108); Creatinine, Blood 1.54 mg/dL (0.60-1.20); Glomerular Filtration Rate 51 (60-); Glucose, Blood 82 mg/dL (70-99); Phosphorus, Blood 3.7 mg/dL (2.5-4.9); Potassium, Blood 4.5 mmol/L (3.5-5.5); Sodium, Blood 138 mmol/L (136-145)
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
--- NOTE | 2019-01-28 04:30 | NUR ---
SHIFT SUMMARY A/O, ABLE TO MAKE NEEDS KNOWN. COOPERATIVE WITH CARE. CALLS AND ANSWERS QUESTIONS APPROPRIATELY. C/O PAIN/DISCOMFORT R/T CHRONIC PAIN; MEDICATED PER EMAR. STATES HAS BEEN CONSTIPATED FOR A COUPLE OF DAYS; RECIEVING BOWEL CARE. APPEARED TO REST MUCH OF SHIFT. NO ACUTE CHANGES OVERNIGHT. BED IN LOWEST POSITION. WCTM. REPORT TO ONCOMING RN.
[2019-01-28 05:19] LABS: Hematocrit 32.2 % (37.0-53.0)
[2019-01-28 05:44] LABS: Albumin, Blood 2.8 g/dL (3.4-5.0); Anion Gap 4 mmol/L (6-16); Blood Urea Nitrogen 37 mg/dL (8-24); Bun/Creatinine Ratio 23.9 (12.0-20.0); CO2, Blood 30 mmol/L (21-32); Calcium, Blood 8.6 mg/dL (8.5-10.1); Chloride, Blood 104 mmol/L (98-108); Creatinine, Blood 1.55 mg/dL (0.60-1.20); Glomerular Filtration Rate 50 (60-); Glucose, Blood 91 mg/dL (70-99); Phosphorus, Blood 3.7 mg/dL (2.5-4.9); Potassium, Blood 4.4 mmol/L (3.5-5.5); Sodium, Blood 138 mmol/L (136-145)
--- NOTE | 2019-01-28 18:27 | NUR ---
SHIFT SUMMARY. A&OX3, PLEASANT AND COOPERATIVE. PT SPEAKS OF CHRONIC PAIN AND EXPERIENCE IN SERVICE THE BASIS FOR HIS FRUSTRATIONS AND NEGATIVE THOUGHTS. PT REPORTS MINIMAL RELIEF OF PAIN WITH INTERVENTIONS GIVEN AND THAT NOTHING HAS HELPED HIS PAIN IN THE PAST AND THAT HE DOES NOT WISH ADDITIONAL MEDICATIONS ADDED AT THIS TIME. PT DENIES SOB, N/V. GOOD MEAL INTAKE. PT TOOK SHOWER TODAY. PT PARTICPATED WITH PHYSICAL THERAPY AND TOLERATED WELL. NO NEW CHANGES OR CONCERNS.
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
--- NOTE | 2019-01-29 12:06 | NUR ---
REMOTE MONITORING CALL TO VIDEO MONTIOR MADIE THIS MORING. CONFIRMS VIDEO ON AND PATIENT IN BED.
--- NOTE | 2019-01-29 17:15 | NUR ---
SHIFT SUMMARY PATIENT RESTING IN BED TALKING ON PHONE OFF AND ON DURING SHIFT. PATIENT HAD ONE VISITOR, YELITZA SABINOERIC METZ, WHO REPORTS HE IS PATIENT'S FINANCIAL POWER OF CABLE OPERATOR. CARE MANAGEMENT ALSO MET WITH PATIENT AND MR. METZ TO DISCUSS PATIENT'S CARE. PATIENT STATES HE IS STILL HAVING ACTIVE SUICIDAL IDEATION RELATED TO HIS CHRONIC PAIN. PATIENT CONFABULATES MUCH OF HIS HISTORY AND GETTING ACCURATE INFORMATION FROM HIM IS DIFFICULT. PT WORKED WITH PATIENT TODAY, PATIENT WALKED INDEPENDENTLY WITH CANE IN HALLWAY WITH PT. PATIENT CONTINUES TO AWAIT PSYCH PLACEMENT. CALL LIGHT IN REACH, WILL CONTINUE TO MONITOR.
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
--- NOTE | 2019-01-30 05:07 | NUR ---
SHIFT SUMMARY: WILL FELL ASLEEP SHORTLY AFTER MEDS WERE GIVEN. HE SLEPT GOOD THROUGHOUT THE NIGHT WITH NO ACUTE CHANGES OR CONCERNS. SUCICIDE ASSESSMENT CONTINUED TO SHOW SIGNS OF CONCERNS HE CONTINUES TO REPORT THAT HE WILL ATTEMPT AGAIN IF HIS PAIN GETS OUT OF CONTROL. STATES LONG HE IS ON HIS PSYCH MEDS HE SHOULD BE FINE. HE STATES NO PLAN OR INTENTIONS AT THIS TIME. HE HAD NO SIGNS OF CONCERNS DISPITE HIS THOUGHTS DURING THE NIGHT. WILL REPORT TO DAY SHIFT RN.
--- NOTE | 2019-01-30 08:30 | NUR ---
REMOTE MONITORING CALLED REEMA IN REMOTE MONITORING TO CONFIRM CAMERA ON IN ROOM AND MONITOR AWARE OF SI PRECAUTIONS. MONITOR REPORTS CAMERA ON AND PATIENT RESTING IN BED.
[2019-01-30 09:22] LABS: Potassium, Blood 4.4 mmol/L (3.5-5.5)
--- NOTE | 2019-01-30 09:49 | NUR ---
PATIENT WAS OFFERED A SHOWER AND DECLINED AT THIS TIME AND STATED HE WOULD TAKE ONE AFTER LUNCH. I WILL CHECK BACK IN WITH HIM AFTER LUNCH.
--- NOTE | 2019-01-30 18:00 | NUR ---
SHIFT SUMMARY LATE ENTRY- NO ACUTE CHANGES. PATIENT DID NOT REQUEST PAIN MEDICATION EXCEPT IN THE MORNING. DENIES NAUSEA AND SHORTNESS OF BREATH. REPORT HE STILL HAS SUICIDAL IDEATION RELATED TO NOT GETTING A PSYCHIATRIC PLACEMENT. PATIENT DID HAVE BM TODAY. UP INDEPENDENT IN ROOM. REMOTE MONITORING IN PLACE.
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
--- NOTE | 2019-01-31 06:23 | NUR ---
SHIFT SUMMARY: WILL WAS PLEASANT AND COOPERATIVE ALL NIGHT. HE FOLLOWED DIRECTIONS AND WAS VERY TALKATIVE TO STAFF. STATES HE IS GOING TO GO TO A FACILITY WHICH HE DOES NOT MIND BUT WAS VERY CURIOUS ABOUT [facility]. SO WE CHATTED REGARDING HIS COUNCELING AND HOW IT WILL HELP. HE PLANS ON FOLLOWING THROUGH WITH THIS. HE REMAINED SAFE AND ON MONITOR. NO ACUTE CHANGES OCCURED. WILL REPORT TO DAY SHIFT RN.
--- NOTE | 2019-01-31 10:37 | NUR ---
REMOTE MONITORING CALL TO REMOTE MONITOR. VIDEO MONITOR REPORTS CAMERA WORKING AND PATIENT IN BED SLEEPING.
--- NOTE | 2019-01-31 17:21 | NUR ---
SHIFT SUMMARY NO ACUTE CHANGES. PATIENT DID NOT REQUEST PAIN MEDICATION THIS SHIFT. PATIENT TALKED ON PHONE AND NAPPED TODAY. EATING WELL. DENIES NAUSEA AND SHORTNESS OF BREATH. BM TODAY. REPORTS THAT HE BELIEVES HE WILL FEEL SUICIDAL IF HE DOES NOT GET PSYCH PLACEMENT. REMOTE MONITORING ON. CALL LIGHT IN REACH.
--- NOTE | 2019-02-01 05:35 | NUR ---
SHIFT SUMMARY: WILL SLEPT THROUGHOUT THE NIGHT WITH NO ACUTE CHANGES OR CONCERNS. MEDS WERE GIVEN PER EMAR, MONITORING STAYED ON THE PATIENT WHICH HAD NO CONCERNS THEM SELF. VS WNL, NO CHANGES TO HIS SI ASSESSMENT WILL REPORT TO DAY SHIFT RN.
--- NOTE | 2019-02-01 18:41 | NUR ---
PT HAS BEEN PLEASANT AND COOPERATIVE TODAY, NO C/O PAIN. REMAINS ON SI WATCH AND IS ON CAMERA. WILL CONTINUE TO MONITOR AND REPORT TO ONCOMING RN
--- NOTE | 2019-02-01 20:36 | NUR ---
02/01/191944 VERIFIED THAT THIS PATIENT IS ON CONTINUOS VIDEO MONITORING FOR SUICIDE PRECAUTIONS PER STEVEN THE VIDEO TECH.
--- NOTE | 2019-02-02 07:29 | NUR ---
02/02/19 0550 PT AWAKE AND ASSISTED TO BR FOR ORAL CARE. BATHROOM LOCKED AGAIN AFTERWARDS. NO COMPLAINTS AND COFFEE GIVEN PER HIS REQUEST.
--- NOTE | 2019-02-02 12:23 | NUR ---
CONVERSING WITH PT, HE STATED HE HAD SOME "BAD NIGHTMARES", HE COULD NOT TELL ME WHAT THEY WERE ABOUT. WILL CONTINUES TO THINK ABOUT TAKING PILLS TO END HIS LIFE, SAYS "I ALWAYS AM". PT REMAINS POSITIVE FOR SUICIDAL IDEATION. WILL CONTINUE TO MONITOR.
--- NOTE | 2019-02-03 04:10 | NUR ---
02/03/19 0410 PT SLEEPING WELL AT THIS TIME. CONTINUOS VIDEO MONITORING DUE TO SUICIDAL IDEATIONS. VOIDING QS IN URINAL. VITALS STABLE THIS SHIFT.
--- NOTE | 2019-02-03 06:09 | NUR ---
02/03/19 0530 PT AWAKE AND C/O BACK AND LEFT LEG PAIN. MEDICATED PER SEP. NO OTHER S/S.
--- NOTE | 2019-02-03 18:08 | NUR ---
PATIENT IS ALERT AND ORIENTED AND COOPERATIVE WITH CARE. PATIENT CAN BECOME IRRITABLE. COMPLAINS OF BACK PAIN, TREATED WITH WARM BLANKETS AND HEATED PADS. POSSIBLE DISCHARGE TO [facility] IN [place], WAITING FOR CALL TO VERIFY BED AVAILABILITY. WILL CONTINUE TO MONITOR
--- NOTE | 2019-02-03 20:18 | NUR ---
02/03/192019 Qwin from [facility] called to say he did not have adequate staffing for patient to transfer to their facility [facility]. Plan on admission in am. Direct number is if further questions.
--- NOTE | 2019-02-03 21:55 | NUR ---
02/03/19 2140 PT CHEERFUL AND TALKING ABOUT POSSIBLE TRANSFER TO ANOTHER FACILITY IN THE NEXT 24 HOURS. WANTED A PENCIL AND PAPER TO WRITE "SOMETHINGS DOWN". RN SPOKE WITH MARKETING AREA MANAGER,CHANCE, AND PT WAS GIVEN 3 INCH PENCIL AND PAD OF PAPER. RN NOTIFIED VIDEO ENDOSCOPY TECHNICAN TO HAVE THEM AWARE AND TO CALL RN IF ANY SUSPICIOUS BEHAVIOR OCCURS. SPOKE WITH TETO.
--- NOTE | 2019-02-04 16:54 | NUR ---
DISCHARGE SPOKE WITH RUDOLPH FROM [facility], GAVE REPORT, HE SAID SET UP SECURE TRANSPORT THEY WILL ADMIT HIM
[2019-02-04] MEDS ORDERED: Aspirin EC81 MG PO (16:58)
[2019-02-04] MEDS ORDERED: TRAM50 PO (16:58)
[2019-02-04] MEDS ORDERED: GABA100 PO (16:58)
[2019-02-04] MEDS ORDERED: Trazodone HCl300 MG PO (16:58)
--- NOTE | 2019-02-04 17:15 | NUR ---
SUMMARY/DISCHARGE PT BEING DISCHARGED TO [facility], WILL BE TRANSFERRED BY SECURE TRANSPORT, CARE MANAGEMENT IS ARRANGING, PT NOTIFIED
--- NOTE | 2019-02-04 17:24 | NUR ---
NURSE TO NURSE REPORT IF MORE INFO IS NEEDED IS [phone]
== END 2019-02-04 19:55 | DRG 917 ==
LOC: ER 21:04 → MEDS 23:51 → ICUE 23:51 → ICUW 23:51 → ICUE 01-19 01:04 → ICUW 01-19 01:05 → MEDS 01-20 18:09
PROVIDERS: Emergency Medicine; Internal Medicine Nephrology; ADMIT Hospitalist
PROC: 05HM33Z Insertion of Infusion Device into Right Internal Jugular Vein, Percutaneous Approach (ICD-10-PCS; principal; 2019-01-19)
PROC: B543ZZA Ultrasonography of Right Jugular Veins, Guidance (ICD-10-PCS; 2019-01-19)
PROC: 5A1D70Z Performance of Urinary Filtration, Intermittent, Less than 6 Hours Per Day (ICD-10-PCS; 2019-01-19)
DX: T39.092A Poisoning by salicylates, intentional self-harm, initial encounter (principal); G92 Toxic encephalopathy; F33.3 Major depressive disorder, recurrent, severe with psychotic symptoms; E87.3 Alkalosis; E89.6 Postprocedural adrenocortical (-medullary) hypofunction; E87.1 Hypo-osmolality and hyponatremia; F17.290 Nicotine dependence, other tobacco product, uncomplicated; I25.10 Atherosclerotic heart disease of native coronary artery without angina pectoris; N18.3 Chronic kidney disease, stage 3 (moderate); I25.2 Old myocardial infarction; E87.6 Hypokalemia; G89.29 Other chronic pain; E83.39 Other disorders of phosphorus metabolism; D63.1 Anemia in chronic kidney disease; K59.00 Constipation, unspecified; Z59.0 Homelessness; M25.569 Pain in unspecified knee; M54.9 Dorsalgia, unspecified; I12.9 Hypertensive chronic kidney disease with stage 1 through stage 4 chronic kidney disease, or unspecified chronic kidney disease
CPT/HCPCS: 36415; 36556; 36600; 51701; 51703; 70450; 71045; 74018; 76770; 80048; 80053; 80069; 80074; 81001; 81003; 82140; 82550; 82803; 82947; 83605; 83735; 84100; 84132; 84295; 85014; 85018; 85025; 86317; 87040; 87086; 93005; 93010; 96361-59; 96365-59; 96375-59; 97110; 97116; 97161; 97166; 97530; 99285-25; C1752; C9113; G0103; G0480; J0881; J1644; J1650; J2060; J3010; J3480; J7030; J7050; J7060; J7070; J7120; J7131; J7799; P9046